=== PATIENT | male | born 1960 | race African-American/Black ===

== ENCOUNTER 2021-02-11 17:18 | Emergency (ER) | payer OTHER ==
[~2021-02-11] VITALS: Ht 182.9 cm; Wt 91.0 kg
[2021-02-11] MEDS ORDERED: METOCLOPRAMIDE HCL 5MG TABLET PO ONE (18:00)
[2021-02-11 18:19] LABS: BASOPHILS % 0.5 % (0.0-2.0); EOSINOPHILS % 4.1 % (0.0-5.0); HEMATOCRIT. 39.7 % (42.0-52.0); HEMOGLOBIN. 13.4 g/dL (14.0-18.0); LYMPHOCYTES % 39.1 % (20.0-50.0); MEAN CORPUSCULAR VOLUME 82.8 fL (80.0-94.0); MEAN PLATELET VOLUME 7.4 fl (7.4-10.4); MONOCYTES % 8.8 % (2.0-8.0); NEUTROPHILS % 47.5 % (40.0-76.0); PLATELET 223 x1000/uL (130-400); RED BLOOD CELL COUNT 4.79 mill/uL (4.7-6.1); RED CELL DISTRIBUTION WIDTH 13.1 % (11.6-14.6)
[2021-02-11 18:26] LABS: CHLORIDE 106 mEq/L (98-107)
[2021-02-11 18:51] VITALS: BP 143/86
[2021-02-11] MEDS ORDERED: METO-293 MT (20:01)
== END 2021-02-11 20:30 | disposition home or self-care (01) ==
LOC: ER 17:18
DX: F41.9 Anxiety disorder, unspecified (principal); I10 Essential (primary) hypertension; K21.9 Gastro-esophageal reflux disease without esophagitis
CPT/HCPCS: 36415; 80053; 83690; 85025; 93005; 99284; J8597